=== PATIENT | male | born 1955 | race African-American/Black ===

== ENCOUNTER 2017-06-02 16:56 | Emergency (ER) | payer SELFPAY ==
[~2017-06-02] VITALS: Ht 180.3 cm; Wt 86.2 kg
[~2017-06-02 16:56] MED LIST: AMLO10TA4 PO; ASPI325T8 PO; ATORVASTATIN CA80 MG PO; CHOL10003 PO; ERGO500027 PO; GABA-586 PO; OMEP20CA9 PO; TAMS0.4C2 PO; TRIA50CA PO
[2017-06-02 17:56] VITALS: BP 135/86
--- NOTE | 2017-06-02 18:24 | PHYS DOC ---
Past Medical History Past Medical History: CAD, High Cholesterol, Hypertension Past Surgical History: Knee Replacement Additional Past Surgical Histo: cardiac stent, tumor removal Alcohol Use: None Drug Use: None Adult General Chief Complaint Chief Complaint: LACERATION/AVULSION HPI HPI Patient is a 61 year old male with history of hypertension, high cholesterol, CAD, who presents today with right hand laceration after his hand was caught in a drill grinder. Patient is right-handed. Review of Systems Review of Systems Constitutional: Denies fever or chills [] Musculoskeletal: Denies back pain or joint pain [] Integument: Right hand laceration Neurologic: Denies headache, focal weakness or sensory changes [] Endocrine: Denies polyuria or polydipsia [] Current Medications Current Medications Current Medications Medications (Trade) Dose Ordered Sig/Keyla Start Time Stop Time Status Last Admin Dose Admin Lidocaine/Sodium Bicarbonate (Buffered Lidocaine 1%) 20 ml 1X ONCE 06/02/17 18:30 06/02/17 18:31 06/02/17 18:18 20 ML Allergies Allergies Allergies Coded Allergies Type Severity Reaction Last Updated Verified Milk Containing Products Allergy Unknown 03/28/15 No rosuvastatin Allergy Unknown 03/28/15 No topiramate Allergy Unknown 03/28/15 No Uncoded Allergies Type Severity Reaction Last Updated Verified rice Allergy Unknown 03/28/15 Physical Exam Physical Exam Constitutional: Well developed, well nourished, no acute distress, non-toxic appearance. [] HENT: Normocephalic, atraumatic, bilateral external ears normal, oropharynx moist, no oral exudates, nose normal. [] Skin: Right lateral thumb mid phalanx with a laceration approximately 2 cm long , this no obvious tendon involvement. Adequate flexion and extension of the right thumb. +2 right radial pulse. Adequate radial sensation to the right thumb. Cap refill less than 2 seconds the right thumb. Back: No tenderness, no CVA tenderness. [] Extremities: No tenderness, no cyanosis, no clubbing, ROM intact, no edema. [] Neurologic: Alert and oriented X 3, normal motor function, normal sensory function, no focal deficits noted. [] Psychologic: Affect normal, judgement normal, mood normal. [] Current Patient Data Vital Signs Vital Signs Date Time Temp Pulse Resp B/P (MAP) Pulse Ox O2 Delivery O2 Flow Rate FiO2 8/10/17 17:56 98.7 70 20 94 Room Air 98.7 EKG EKG [] Radiology/Procedures Radiology/Procedures Indication: Right thumb laceration Procedure: The patient was placed in the appropriate position and anesthesia around the laceration was 1% buffered lidocaine. The laceration was explored for foreign objects, none was found. The laceration was cleaned with 100 ML of normal saline and Betadine. The laceration was closed with 5 interrupted sutures using 4. 0 Ethilon. The wound was covered with Band-Aid. Total repaired wound length: Approximately 2 cm long Other Items: none The patient tolerated the procedure well Complications: none Course & Med Decision Making Course & Med Decision Making Pertinent Labs and Imaging studies reviewed. (See chart for details) Patient is in the ED right thumb laceration that was closed as noted in procedures. Patient refused to have right hand x-rayed despite being cut with a drill grinder, he states he does not have time to wait, he was given the risk of closing the laceration with no x-rays. Tetanus is up-to-date. Wound care instructions as well as return precautions provided. Dragon Disclaimer Dragon Disclaimer This electronic medical record was generated, in whole or in part, using a voice recognition dictation system. Departure Departure Impression: Primary Impression: Laceration of right hand Disposition: 01 HOME, SELF-CARE Condition: STABLE Referrals: UNKNOWN PCP NAME (PCP) follow up with the ER or your doctor in 7-10 days for suture removal Patient Instructions: Laceration Care, Adult, [id number] Additional Instructions: You were seen for right hand laceration which was closed with stitches. Keep the area clean and dry. Apply Neosporin to the area twice a day. Take Tylenol / Motrin as needed for pain. Monitor the area for signs and symptoms of infection including but not limited to increased redness, warmth,odor/yellow drainage from the area and return to the ED or see your doctor if they occur. Have the stitches removed in 7-10 days Problem Qualifiers Primary Impression: Laceration of right hand Encounter type: initial encounter Foreign body presence: without foreign body Qualified Codes: S61.411A - Laceration without foreign body of right hand , initial encounter ATILIO DALTON APRN Jun 02, 2017 18:24
[2017-06-02] MEDS ORDERED: LIDOCAINE 1% / SOD BICARB 8.4% 20 ML VIAL. IJ ONE (18:30)
== END 2017-06-02 18:27 | disposition home or self-care (01) ==
LOC: ER 16:56
DX: S61.011A Laceration without foreign body of right thumb without damage to nail, initial encounter (principal); I10 Essential (primary) hypertension; E78.00 Pure hypercholesterolemia, unspecified; I25.10 Atherosclerotic heart disease of native coronary artery without angina pectoris; Z95.5 Presence of coronary angioplasty implant and graft; Z96.659 Presence of unspecified artificial knee joint; Z91.011 Allergy to milk products; Z88.8 Allergy status to other drugs, medicaments and biological substances; Z91.018 Allergy to other foods; W31.89XA Contact with other specified machinery, initial encounter; Y93.89 Activity, other specified; Y92.89 Other specified places as the place of occurrence of the external cause; Y99.8 Other external cause status
CPT/HCPCS: 12001; 99283-25